=== PATIENT | female | born 1995 | race American Indian/Alaskan Native ===

== ENCOUNTER 2018-03-01 18:43 | Emergency (ER) | payer SELFPAY ==
[2018-03-01 18:52] VITALS: BMI 28.4
[2018-03-01] MEDS ORDERED: Sodium Chloride 0.9% 1,000 ML IV ONE (19:56)
--- NOTE | 2018-03-01 19:57 | C.PDOC ---
History Of Present Illness 22 year old female presents to the ED c/o lower abdominal pain for the past 2 days. Patient also reports having one episode of emesis on Thursday but still able to tolerate PO. Patient reports she took Advil with no relief. Patient d enies fever, chills, diarrhea, back pain, dysuria, hematuria, back pain. Time Seen by Provider: 03/01/18 19:56 Chief Complaint (Nursing): Abdominal Pain History Per: Patient Onset/Duration Of Symptoms: Days (2) Current Symptoms Are (Timing): Still Present Location Of Pain/Discomfort: Diffuse Quality Of Discomfort: "Pain" Associated Symptoms: Nausea, Vomiting. denies: Diarrhea, Loss Of Appetite, Urinary Symptoms Recent travel outside of the [place]: No Additional History Per: Patient Abnormal Vaginal Bleeding: No Past Medical History Reviewed: Historical Data, Nursing Documentation, Vital Signs Vital Signs: Last Vital Signs Temp 99.5 F 03/01/18 18:52 Pulse 82 03/01/18 18:52 Resp 18 03/01/18 18:52 BP 127/84 03/01/18 18:52 Pulse Ox 100 03/01/18 18:52 - Medical History PMH: Bronchitis Surgical History: No Surg Hx Family History: States: Unknown Family Hx - Social History Hx Alcohol Use: No Hx Substance Use: No - Immunization History Hx Tetanus Toxoid Vaccination: No Hx Influenza Vaccination: No Hx Pneumococcal Vaccination: No Review Of Systems Constitutional: Negative for: Fever, Chills Cardiovascular: Negative for: Chest Pain Respiratory: Negative for: Shortness of Breath Gastrointestinal: Positive for: Vomiting, Abdominal Pain. Negative for: Nausea, Diarrhea Genitourinary: Negative for: Dysuria, Hematuria Musculoskeletal: Negative for: Back Pain Neurological: Negative for: Weakness, Numbness Physical Exam - Physical Exam Appears: Non-toxic, No Acute Distress Skin: Warm, Dry Head: Normacephalic Eye(s): bilateral: Normal Inspection Oral Mucosa: Moist Neck: Supple Lymphatic: Deferred Chest: Symmetrical Cardiovascular: Rhythm Regular Respiratory: No Rales, No Rhonchi, No Wheezing Gastrointestinal/Abdominal: Soft, No Tenderness, No Guarding, No Rebound Back: No CVA Tenderness Extremity: Bilateral: Atraumatic, Normal Color And Temperature, Normal ROM Neurological/Psych: Oriented x3, Normal Speech, Normal Cognition Gait: Steady ED Course And Treatment - Laboratory Results Result Diagrams: 03/01/18 20:27 03/01/18 20:27 O2 Sat by Pulse Oximetry: 100 (ON RA) Pulse Ox Interpretation: Normal Progress Note: Plan: - Labs. - Macrobid 100 mg PO. - IV fluids. - UA Reevaluation Time: 21:40 Reassessment Condition: Improved Medical Decision Making Medical Decision Making: Upon provider reevaluation patient is feeling better, is medically stable, and requires no further treatment in the ED at this time. Patient will be discharged home with Rx formacrobid and pyridium . Counseling was provided and all questions were answered regarding diagnosis and need for follow up withdr virgilio slater. There is agreement to discharge plan. Return if symptoms persist or worsen. Disposition Counseled Patient/Family Regarding: Studies Performed, Diagnosis, Need For Followup, Rx Given - Disposition Referrals: Cristian Cordova MD [Staff Provider] - Disposition: HOME/ ROUTINE Disposition Time: 19:56 Condition: FAIR Additional Instructions: Please return if symptoms recur Prescriptions: Nitrofurantoin Macrocrystals [Macrobid] 1 cap PO BID #14 cap Phenazopyridine HCl [Pyridium] 200 mg PO TID #6 tablet Instructions: Urinary Tract Infection, Adult (DC) Forms: [employer] (Lao) - Clinical Impression Clinical Impression: UTI (urinary tract infection) - Scribe Statement The provider has reviewed the documentation as recorded by the Scribe Ruben Sims All medical record entries made by the Scribe were at my direction and personally dictated by me. I have reviewed the chart and agree that the record accurately reflects my personal performance of the history, physical exam, medical decision making, and the department course for this patient. I have also personally directed, reviewed, and agree with the discharge instructions and disposition.
[2018-03-01 20:35] LABS: BASO # 0.1 K/uL (0.0-0.2); BASO % 1.3 % (0.0-2.0); EOS # 0.1 K/uL (0.0-0.7); EOS % 0.9 % (0.0-4.0); HEMOGLOBIN 11.8 g/dL (11.0-16.0); LYMPH # 1.2 K/uL (1.0-4.3); LYMPH % 16.3 % (20.0-40.0); MEAN CELL VOLUME 84.8 fL (81.0-99.0); MEAN CORPUSCULAR HGB CONC 31.9 g/dL (33.0-37.0); MEAN PLATELET VOLUME 8.5 fL (7.2-11.7); MONO # 0.5 K/uL (0.0-0.8); MONO % 7.4 % (0.0-10.0); NEUT # 5.4 K/uL (1.8-7.0); NEUT % 74.1 % (50.0-75.0); RBC 4.39 Mil/uL (3.80-5.20); RED CELL DISTRIBUTION WIDTH 16.5 % (11.5-14.5); WHITE BLOOD COUNT 7.3 K/uL (4.8-10.8)
[2018-03-01 20:43] LABS: HCG,QUALITATIVE URINE NEGATIVE (NEGATIVE)
[2018-03-01 20:44] LABS: SQUAMOUS EPITHIAL 4 /hpf (0-5); URINE BACTERIA FEW (<OCC); URINE BILIRUBIN NEGATIVE (NEGATIVE); URINE BLOOD 3+ (NEGATIVE); URINE COLOR Yellow (YELLOW); URINE GLUCOSE (UA) NORMAL (Normal); URINE LEUKOCYTE ESTERASE 3+ Leu/uL (Negative); URINE PROTEIN 2+ mg/dL (NEGATIVE); URINE UROBILINOGEN NORMAL mg/dL (0.2-1.0)
[2018-03-01 20:46] LABS: URINE CLARITY Hazy (Clear)
[2018-03-01 20:51] LABS: ALB/GLOB RATIO 1.3 (1.0-2.1); ALBUMIN 4.6 g/dL (3.5-5.0); ALT/SGPT 21 U/L (9-52); AST/SGOT 31 U/L (14-36); BLOOD UREA NITROGEN 15 mg/dL (7-17); CALCIUM 9.5 mg/dl (8.6-10.4); GFR NON-AFRICAN AMERICAN > 60; LIPASE 79 U/L (23-300)
[2018-03-01 22:00] VITALS: BP 130/80; PULSE 84; RESP 20; TEMP 99; O2SAT 99
== END 2018-03-01 21:59 | disposition home or self-care (01) ==
LOC: C.ER 18:43
DX: N39.0 Urinary tract infection, site not specified (principal)

== ENCOUNTER 2018-06-13 17:14 | Emergency (ER) | payer MEDICAID ==
[2018-06-13 17:15] VITALS: BMI 28.4
[2018-06-13 17:32] VITALS: O2SAT 100
[2018-06-13 19:18] VITALS: RESP 20
--- NOTE | 2018-06-13 20:08 | C.PDOC ---
History Of Present Illness 22 year old female presents to the emergency department status-post falling yesterday. Patient states that the pain in her right foot was "really bad" and that she had difficulty putting weight on it. Patient denies other complaints at this time. Time Seen by Provider: 06/13/18 17:32 Chief Complaint (Nursing): Lower Extremity Problem/Injury History Per: Patient History/Exam Limitations: no limitations Onset/Duration Of Symptoms: Days (1) Current Symptoms Are (Timing): Still Present - Ankle/Foot Description Of Injury: Fell Currently Unable To: Bear Weight Past Medical History Reviewed: Historical Data, Nursing Documentation, Vital Signs Vital Signs: Last Vital Signs Temp 98.3 F 06/13/18 19:17 Pulse 72 06/13/18 19:17 Resp 20 06/13/18 19:17 BP 116/80 06/13/18 19:17 Pulse Ox 100 06/13/18 19:17 - Medical History PMH: Bronchitis Surgical History: No Surg Hx Family History: States: Unknown Family Hx - Social History Hx Alcohol Use: No Hx Substance Use: No - Immunization History Hx Tetanus Toxoid Vaccination: No Hx Influenza Vaccination: No Hx Pneumococcal Vaccination: No Review Of Systems Except As Marked, All Systems Reviewed And Found Negative. Constitutional: Negative for: Fever, Chills Musculoskeletal: Positive for: Foot Pain (right) Neurological: Negative for: Weakness, Numbness Physical Exam - Physical Exam Appears: Non-toxic, No Acute Distress Skin: Warm, Dry, Ecchymosis (to the dorsum of the right foot) Head: Atraumatic, Normacephalic Neck: Supple Chest: Symmetrical Extremity: Tenderness (TTP dorsum of right foot), Swelling (slight swelling to the right lateral malleolus and dorsum of right foot) Extremity: Right: Painful To Bear Weight (foot) Neurological/Psych: Oriented x3, Normal Speech, Normal Cognition ED Course And Treatment O2 Sat by Pulse Oximetry: 100 (RA) Pulse Ox Interpretation: Normal - Other Rad XR Right Foot X-Ray: Interpreted by Me, Viewed By Me Interpretation: Suspected fracture of base of the 4th metatarsal bone - CT Scan/US CT Right Foot and Ankle Other Rad Studies (CT/US): Read By Radiologist, Radiology Report Reviewed CT/US Interpretation: EXAM: CT Ankle, right, without IV contrast. CLINICAL HISTORY: Right foot and ankle injury. TECHNIQUE: Axial computed tomography images of the right ankle without intravenous contrast. 0.00 mGy-cm. CONTRAST: Without. COMPARISON: None provided. FINDINGS: BONES: Nondisplaced fracture at the base of the fourth metatarsal. No aggressive appearing osseous lesion. No periosteal reaction evident. JOINTS: The joint spaces appear within normal limits. No dislocation. SOFT TISSUES: No radiopaque foreign body is seen. 2.2 x 1.4 cm cyst is noted posterior to the distal tibia, most likely representing an ganglion cyst. IMPRESSION: 2.2 cm ganglion cyst posterior to the distal tibia. Nondisplaced fracture at the base of the fourth metatarsal. Progress Note: Plan: XR Right Foot and Ankle. CT Right Foot and Ankle. Darnell. Podiatry consult. Podiatry resident came and splinted patient. Patient will be d/c home on crutches with podiatry clinic follow up next Thursday06/21/18. Disposition - Disposition Referrals: [facility] [Outside] Disposition: HOME/ ROUTINE Disposition Time: 21:03 Condition: STABLE Additional Instructions: Follow up in podiatry Clinic next Thursday, June 21, 2018. Return to ED if feel worse. Keep your foot elevated. Prescriptions: traMADol [Ultram] 50 mg PO Q6 #20 tab Instructions: Foot Fracture (DC) Forms: [employer] (Afghan), Work Excuse - Clinical Impression Clinical Impression: Foot fracture, right - PA / HOSPITAL STAFF PHARMACIST / Resident Statement MD/DO has reviewed & agrees with the documentation as recorded. - Scribe Statement The provider has reviewed the documentation as recorded by the Scribe (Sina Ibanez) All medical record entries made by the Scribe were at my direction and personally dictated by me. I have reviewed the chart and agree that the record accurately reflects my personal performance of the history, physical exam, medical decision making, and the department course for this patient. I have also personally directed, reviewed, and agree with the discharge instructions and disposition.
[2018-06-13 21:11] VITALS: BP 122/85; PULSE 70; TEMP 98.5
--- NOTE | 2018-06-14 06:33 | CP.PCM.CON ---
History of Present Illness - History of Present Illness History of Present Illness: Podiatry Consult Note: Dr. Farrell 22F patient, with no PMHx, seen and examined at bedside for right foot pain. Patient states that she tripped yesterday and immediately was unable to weightbear. She thought the pain would go away, however today the pain is worse. She has taken OTC pain medication for the pain. She denies any nausea/vomiting/fever/shortness of breath. PMHx: denies PSHx: denies ALL: NKDA Review of Systems - Constitutional Constitutional: As Per HPI Past Patient History - Past Social History Smoking Status: Current Some Days Smoker - PULMONARY Hx Bronchitis: Yes - PSYCHIATRIC Hx Substance Use: No - SURGICAL HISTORY Hx Surgeries: Yes Hx Eye Surgery: Yes (left eye) Meds Home Medications: Home Medication List Medication Instructions Recorded Confirmed Type traMADol [Ultram] 50 mg PO Q6 #20 tab 06/13/18 Rx Allergies/Adverse Reactions: Allergies Allergy/AdvReac Type Severity Reaction Status Date / Time No Known Allergies Allergy Verified 06/13/18 17:25 Physical Exam - Constitutional Appears: Non-toxic, No Acute Distress - Head Exam Head Exam: ATRAUMATIC, NORMOCEPHALIC - Extremities Exam Additional comments: Vascular: DP/PT 2/4, CFT < 3 seconds, TG warm to warm Ortho: Pain with palpation of base of metatarsals dorsally, MMT 4/5 secondary to guarding, achilles intact Neuro: Gross and protective sensation intact Derm: No open lesions, no erythema, no clinical signs of infection - Neurological Exam Neurological exam: Alert, Oriented x3 - Psychiatric Exam Psychiatric exam: Normal Affect, Normal Mood - Skin Skin Exam: Warm Results - Vital Signs Recent Vital Signs: Last Vital Signs Temp 98.5 F 06/13/18 21:10 Pulse 70 06/13/18 21:10 Resp 20 06/13/18 21:10 BP 122/85 06/13/18 21:10 Pulse Ox 100 06/13/18 21:34 Assessment & Plan - Assessment and Plan (Free Text) Assessment: 22F patient with avulsion fracture at base of 2nd met, avulsion fracture of 3rd met, and oblique transverse fracture through the base of the 4th met Plan: Patient seen and examined Discussed patient in detail with Dr. Farrell Patient to remain NWB to lower extremity Dressing to be left C/D/I RICE protocol OTC pain medication PRN Patient expressed verbal understanding F/U in podiatry clinic in 1 week Plan for possible MRI to r/o Lisfranc injury - Date & Time Date: 06/13/18 Time: 20:50
--- NOTE | 2018-06-14 09:27 | RAD ---
Right foot three views History: Fall. Comparison: None available. Findings: Transverse oblique fracture seen through the base of the 4th metatarsal bone. Additional fracture deformities seen on CT scan are not as well visualized on the plain x-ray at the 2nd and 3rd metatarsal bases. Moderate hallux valgus deformity. Impression: Transverse oblique fracture seen through the base of the 4th metatarsal bone. Additional fracture deformities seen on CT scan are not as well visualized on the plain x-ray at the 2nd and 3rd metatarsal bases. Moderate hallux valgus deformity.
--- NOTE | 2018-06-14 09:51 | RAD ---
Right ankle three views History: Fracture. Comparison: None available. Findings: Fracture deformities at the bases of the 2nd 3rd and 4th metatarsal bones. Ankle mortise is maintained. Talar dome is intact. Punctate ossific density seen distal to the distal fibula on the frontal view may represent small avulsion injury. This may be better evaluated with CT scan if clinically indicated. Impression: Fracture deformities at the bases of the 2nd 3rd and 4th metatarsal bones. Punctate ossific density seen distal to the distal fibula on the frontal view may represent small avulsion injury. This may be better evaluated with CT scan if clinically indicated.
--- NOTE | 2018-06-14 12:14 | CT ---
CT right foot and ankle HISTORY: Injury. Comparison: None available. Technique: Multiple contiguous axial images were performed through the right foot and ankle without the use of intravenous contrast. Subsequently, sagittal and coronal reformatted images were obtained. This CT exam was performed using one or more of the following dose reduction techniques: Automated exposure control, adjustment of the mA and/or kV according to patient size, and/or use of iterative reconstruction technique. Findings: Small 5 millimeter avulsion fracture deformity seen at the volar base of the 2nd metatarsal bone. Given the proximity of the Lisfranc ligament, Lisfranc ligament injury and or tear cannot be excluded. Further evaluation with MRI would be helpful for further evaluation if clinically indicated. Additional small avulsion fracture deformity at the volar base of the 3rd metatarsal bone. Transverse oblique fracture deformity through the base of the 4th metatarsal bone extending from the metaphysis of the medial cortex in a transverse oblique orientation to the articular surface with the articulation with the cuboid bone. Punctate ossific density seen distal to the distal fibula which may represent a small avulsion injury. 1.6 x 1.0 centimeter lobulated foci of low-attenuation demonstrating a Hounsfield unit attenuation of 31, lateral to the flexor digitorum longus tendon at the level of the ankle mortise. This is of uncertain clinical etiology. Correlation with MRI may be helpful for further evaluation if clinically indicated. Ankle mortise is maintained. Talar dome is intact. Impression: 1. Small 5 millimeter avulsion fracture deformity seen at the volar base of the 2nd metatarsal bone. Given the proximity of the Lisfranc ligament, Lisfranc ligament injury and or tear cannot be excluded. Further evaluation with MRI would be helpful for further evaluation if clinically indicated. 2. Additional small avulsion fracture deformity at the volar base of the 3rd metatarsal bone. 3. Transverse oblique fracture deformity through the base of the 4th metatarsal bone extending from the metaphysis of the medial cortex in a transverse oblique orientation to the articular surface with the articulation with the cuboid bone. 4. Punctate ossific density seen distal to the distal fibula which may represent a small avulsion injury. 5. 1.6 x 1.0 centimeter lobulated foci of low-attenuation demonstrating a Hounsfield unit attenuation of 31, lateral to the flexor digitorum longus tendon at the level of the ankle mortise. This is of uncertain clinical etiology. Correlation with MRI may be helpful for further evaluation if clinically indicated. A preliminary report was generated at 7:45 p.m. on 06/13/[address] Eryn Tyson from [facility]. These findings were discussed with Dr. Nuñez at 12:04 p.m. on 06/14/2018.
== END 2018-06-13 21:47 | disposition home or self-care (01) ==
LOC: C.ER 17:14
DX: S92.321A Displaced fracture of second metatarsal bone, right foot, initial encounter for closed fracture (principal); S92.331A Displaced fracture of third metatarsal bone, right foot, initial encounter for closed fracture; S92.341A Displaced fracture of fourth metatarsal bone, right foot, initial encounter for closed fracture; W01.0XXA Fall on same level from slipping, tripping and stumbling without subsequent striking against object, initial encounter